=== PATIENT | female | born 1990 ===

== ENCOUNTER 2017-07-15 14:44 | Emergency (ER) | payer OTHER, BC ==
[2017-07-15 15:20] VITALS: O2SAT 99
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
[2017-07-15 17:34] VITALS: BP 120/75; PULSE 60; RESP 16; TEMP 99
== END 2017-07-15 17:34 | disposition home or self-care (01) ==
LOC: C.ER 14:44
DX: S16.1XXA Strain of muscle, fascia and tendon at neck level, initial encounter (principal); V53.5XXA Driver of pick-up truck or van injured in collision with car, pick-up truck or van in traffic accident, initial encounter
CPT/HCPCS: 96372; 99284; J1885